=== PATIENT | male | born 1935 | race Caucasian/White ===

== ENCOUNTER 2018-03-07 11:00 | Inpatient (IN) | payer MEDICARE, BC ==
[~2018-03-07] VITALS: Ht 170.2 cm; Wt 47.6 kg
[~2018-03-07 11:00] MED LIST: ASPI-1159 PO; FAMO-135 PO; FOLI-43 PO; HYDR12.529 PO; LIP40 PO; LOSA1TAB40 PO; PANT40TA4 PO; POTA10TA11 PO; RANI150T12 PO
[2018-03-07 11:21] VITALS: BP 142/73
[2018-03-07 12:00] VITALS: BP 144/98
[2018-03-07 13:34] LABS: BASOPHILS % 1.3 % (0.0-2.0); EOSINOPHILS % 0.8 % (0.0-5.0); HEMATOCRIT. 37.8 % (42.0-52.0); HEMOGLOBIN. 13.1 g/dL (14.0-18.0); LYMPHOCYTES % 15.2 % (20.0-50.0); MEAN CORPUSCULAR HEMOGLOBIN 33.1 pg (28.0-32.0); MEAN CORPUSCULAR VOLUME 95.8 fL (80.0-94.0); MEAN PLATELET VOLUME 9.7 fl (7.4-10.4); MONOCYTES % 9.7 % (2.0-8.0); PLATELET 127 x1000/uL (130-400); RED BLOOD CELL COUNT 3.95 mill/uL (4.7-6.1)
[2018-03-07 13:38] LABS: INR 1.1; PARTIAL THROMBOPLASTIN TIME 26.9 sec (23.4-31.0); PROTHROMBIN TIME 11.6 sec (9.4-11.6)
[2018-03-07 13:58] LABS: CHLORIDE 100 mEq/L (98-107)
[2018-03-07 14:00] VITALS: BP 133/93
[2018-03-07] MEDS: SODIUM CHLORIDE 0.45% 1,000 ML IV SCH ×2 (14:00→23:45)
[2018-03-07] MEDS ORDERED: MIDAZOLAM HCL 2 MG/2 ML VIAL ONE (15:16)
[2018-03-07] MEDS ORDERED: ONDANSETRON HCL 4MG/2ML VIAL ONE (15:17)
[2018-03-07] MEDS ORDERED: FENTANYL CITRATE/PF 50MCG/ML 2ML VIAL ONE (15:17)
[2018-03-07] MEDS ORDERED: LIDOCAINE HCL/PF 1% 10 MG/ML 5ML VIAL ONE (15:17)
[2018-03-07] MEDS ORDERED: CEFAZOLIN 1000MG PREMIX 50 ML IV ONE (15:17)
[2018-03-07] MEDS ORDERED: GENTAMICIN SULF 40MG/ML 2ML VIAL ONE (15:21)
[2018-03-07] MEDS ORDERED: GENTAMICIN/NS IRRIGATION 500 ML IR ONE (15:22)
[2018-03-07] MEDS ORDERED: IOHEXOL-300 100 ML BOTTLE ONE (15:22)
[2018-03-07] MEDS ORDERED: TIMO15DR12 EACHEYE (15:36)
[2018-03-07] MEDS ORDERED: ATROPINE SULFATE 0.1MG/ML 10ML DISP.SYRIN ONE (16:56)
[2018-03-07] MEDS ORDERED: HYDROCODONE/ACETAMINOPHEN 5/325MG TABLET PO PRN (19:15)
[2018-03-07 20:00] VITALS: BP 140/85
[2018-03-07 22:00] VITALS: BP 121/70
[2018-03-07] MEDS: CEFAZOLIN 1000MG PREMIX 50 ML IV SCH (23:45)
[2018-03-08] VITALS (7 sets, daily range): BP systolic 113–134; BP diastolic 47–84
[2018-03-08] MEDS: CEFAZOLIN 1000MG PREMIX 50 ML IV SCH (06:34)
[2018-03-08] MEDS ORDERED: ACETAMINOPHEN 325MG TABLET PO PRN (07:00)
[2018-03-08 07:20] LABS: CHLORIDE 99 mEq/L (98-107)
[2018-03-08 07:27] LABS: BASOPHILS % 0.5 % (0.0-2.0); EOSINOPHILS % 0.4 % (0.0-5.0); HEMATOCRIT. 35.5 % (42.0-52.0); HEMOGLOBIN. 12.3 g/dL (14.0-18.0); MEAN CORPUSCULAR HEMOGLOBIN 33.2 pg (28.0-32.0); MEAN CORPUSCULAR VOLUME 96.3 fL (80.0-94.0); MEAN PLATELET VOLUME 9.9 fl (7.4-10.4); MONOCYTES % 9.4 % (2.0-8.0); NEUTROPHILS % 81.7 % (40.0-76.0); PLATELET 111 x1000/uL (130-400); RED BLOOD CELL COUNT 3.69 mill/uL (4.7-6.1); RED CELL DISTRIBUTION WIDTH 12.9 % (11.6-14.6)
== END 2018-03-08 11:10 | disposition home or self-care (01) | DRG 243 ==
LOC: 3WST 11:00
PROVIDERS: ADMIT Specialist; ATTEND Specialist
PROC: 0JH606Z Insertion of Pacemaker, Dual Chamber into Chest Subcutaneous Tissue and Fascia, Open Approach (ICD-10-PCS; principal; 2018-03-07)
PROC: 02H63JZ Insertion of Pacemaker Lead into Right Atrium, Percutaneous Approach (ICD-10-PCS; 2018-03-07)
PROC: 02HK3JZ Insertion of Pacemaker Lead into Right Ventricle, Percutaneous Approach (ICD-10-PCS; 2018-03-07)
PROC: B5171ZZ Fluoroscopy of Left Subclavian Vein using Low Osmolar Contrast (ICD-10-PCS; 2018-03-07)
DX: I49.5 Sick sinus syndrome (principal); I44.2 Atrioventricular block, complete; I50.9 Heart failure, unspecified; I11.0 Hypertensive heart disease with heart failure; I73.9 Peripheral vascular disease, unspecified; I08.0 Rheumatic disorders of both mitral and aortic valves; E78.5 Hyperlipidemia, unspecified; N40.0 Benign prostatic hyperplasia without lower urinary tract symptoms; Z86.010 Personal history of colon polyps; K22.70 Barrett's esophagus without dysplasia
CPT/HCPCS: 33208; 36415; 71045; 71046; 75820; 80048; 83735; 84443; 85025; 85610; 85730; 93005; A4565; C1785; C1892; C1893; C1898; J0461; J0690; J1580; J2250; J2405; J3010; J3490; J7050; Q9967